=== PATIENT | female | born 2000 | race Caucasian/White ===

== ENCOUNTER 2020-04-22 13:01 | Emergency (ER) | payer BC, SELFPAY ==
[2020-04-22 13:08] VITALS: BP 111/63; PULSE 70; RESP 16; TEMP 37.6; O2SAT 100
--- NOTE | 2020-04-22 13:21 | ED.URI ---
HPI - URI/Sore Throat General Chief Complaint: Upper Respiratory Infection Stated Complaint: sore throat/swollen Time Seen by Provider: 04/22/20 13:21 Source: patient Mode of arrival: ambulatory Limitations: no limitations History of Present Illness HPI Narrative: Kristopher Henson is a 19 yo female with a PMH of depression who [facility] with a sore throat for the last 2 to 3 days. Has a history of having strep throat states is difficult to swallow. Asked that she be given penicillin or other drug because she has used amoxicillin multiple times in the past Related Data Home Medications Medication Instructions Recorded Confirmed sertraline 04/22/20 Allergies Allergy/AdvReac Type Severity Reaction Status Date / Time No Known Allergies Allergy Verified 04/22/20 13:21 Review of Systems Review of Systems: Narrative: CONSTITUTIONAL: Denies fever, chills, sweats. EYES: Denies visual changes, redness, discharge. ENT: Denies rhinorrhea, congestion, has sore throat, no otalgia. CARDIOVASCULAR: Denies chest pain, palpitations, edema. RESPIRATORY: Denies dyspnea, wheezing, cough GASTROINTESTINAL: Denies abdominal pain, nausea, vomiting, diarrhea. GENITOURINARY: Denies dysuria, hematuria, abnormal discharge SKIN: Denies rash or itching. NEUROLOGIC: Denies numbness, or focal weakness. PSYCHIATRIC: Denies anxiety or depression. [facility] Past Medical History Medical History Depression Family History Family History Other Depression Social History Social History (Updated 04/22/20 @ 13:43 by Patsy Redd CNP) Smoking status: Never smoker Alcohol intake: current Comments At time of signature, I agree with nursing past medical, surgical, social and family history. There is no relevant family history pertinent to the presenting complaint. Exam Narrative: Exam Narrative: GENERAL: This is a well-nourished, well-developed patient, in mild distress. HEAD: normocephalic, atraumatic. EYES:Sclera clear/white. Vision is grossly intact. EARS: External ears normal, auditory canals clear and without drainage, TMs normal without perforation. Hearing grossly intact. NOSE: External nose normal without nasal discharge, nares without redness, no rhinorrhea. THROAT: Mucous membranes moist, posterior pharynx erythema with tonsillar swelling NECK: Neck supple, non-tender CARDIOVASCULAR: Regular rate and rhythm without murmurs, gallops, or rubs. RESPIRATORY: Clear to auscultation. Breath sounds equal bilaterally. No wheezes, rales, or rhonchi. GASTROINTESTINAL: Abdomen soft, non-tender, SKIN: warm, intact with no suspicious lesions or rash, good texture and turgor. NEURO: awake, alert, and oriented to person, place and time. There were no obvious focal neurologic abnormalities. Steady gait EXTREMITIES: Normal range of motion. BACK: Nontender without deformity Course Course Emergency Course: Strep test is positive sent for culture Started on penicillin V Infection control discussed Referrals for PCP given Vital Signs Vital signs: Vital Signs Temperature 99.6 F 04/22/20 13:08 Pulse Rate 70 04/22/20 13:08 Respiratory Rate 16 04/22/20 13:08 Blood Pressure 111/63 04/22/20 13:08 Pulse Oximetry 100 04/22/20 13:08 Temperature 99.6 F 04/22/20 13:08 Pulse Rate 70 04/22/20 13:08 Respiratory Rate 16 04/22/20 13:08 Blood Pressure 111/63 04/22/20 13:08 Pulse Oximetry 100 04/22/20 13:08 MDM - URI/Sore Throat Differential Diagnosis Differential diagnosis: Likely upper respiratory infection, otitis media, viral infection, pharyngitis and other Lab Data Labs: Strep Screen Positive Group A Strep *(Reference Range: Negative)* Discharge Plan Discharge Clinical Impression: Pharyngitis Qualifiers: Pharyngitis/tonsillitis etiology: strept
== END 2020-04-22 13:47 | disposition home or self-care (01) ==
PROVIDERS: Emergency Provider Nurse Practitioner
DX: J02.0 Streptococcal pharyngitis (principal); F32.9 Major depressive disorder, single episode, unspecified
CPT/HCPCS: 87880; 99213; G0463

== ENCOUNTER 2021-02-15 17:01 | Emergency (ER) | payer BC, SELFPAY ==
--- NOTE | ~2021-02-15 | XR_ITS ---
EXAMINATION: XR chest 2V EXAM DATE: 02/15/2021 17:43 INDICATION: Crackles. Cough since 02/10/21. TECHNIQUE: Frontal and lateral projections of the chest obtained and reviewed. There is no prior pearl dy for comparison. FINDINGS: The lungs are clear. There are no pleural effusions. The cardiomediastinal silhouette is within normal limits. There is no pneumothorax suspected. The bones and soft tissues are unremarkab le. IMPRESSION: No acute cardiopulmonary findings. Reviewed, dictated and finalized at location A.
--- NOTE | 2021-02-15 17:05 | ED.URI ---
HPI - URI/Sore Throat General Chief Complaint: Upper Respiratory Infection Stated Complaint: Possible Sinus Infection Time Seen by Provider: 02/15/21 17:25 Source: patient and RN notes reviewed Mode of arrival: ambulatory Limitations: no limitations History of Present Illness HPI Narrative: 20-year-old female with history of vaping presents concern for 5 to 6-day history of nasal congestion, sinus pressure, drainage, muffled hearing, cough. Reports intermittent low-grade fever. Reports symptoms started with a sore throat, however the sore throat has resolved. MD elicited complaint: cough and nasal congestion Related Data Allergies Allergy/AdvReac Type Severity Reaction Status Date / Time No Known Allergies Allergy Verified 04/22/20 13:21 Review of Systems Review of Systems: Narrative: CONSTITUTIONAL: Denies malaise, chills, sweats, or fever. EYES: Denies visual changes, redness, or discharge. ENT: Reports rhinorrhea, congestion, sinus pain, otalgia and sore throat. CARDIOVASCULAR: Denies chest pain, palpitations, or edema. RESPIRATORY: Reports cough. Denies dyspnea. GASTROINTESTINAL: Denies abdominal pain, nausea, vomiting, diarrhea SKIN: Denies rash or itching. MUSCULOSKELETAL: Denies myalgia. NEUROLOGIC: Denies headache. All systems reviewed & are unremarkable except as noted in HPI and below PMFSH Past Medical History Medical History (Updated 02/15/21 @ 17:42 by Arlin Escobar NP) Depression Family History Family History Other Depression Social History Social History (Updated 04/22/20 @ 13:43 by Patsy Redd CNP) Smoking status: Never smoker Alcohol intake: current Comments At time of signature, agree with nursing past medical, surgical, social and family history. There is no relevant family history pertinent to the presenting complaint Exam Narrative: Exam Narrative: GENERAL: Well-appearing, well-nourished, and in no acute distress. HEAD: Normocephalic EYES: PERRLA, conjunctivae clear ENT: Nares clear, turbinates edematous and erythematous, clear discharge. Mucous membranes moist. TM pearly pillai with dull light reflex bilaterally; no tragal tenderness. Oropharynx not erythematous without lesions. Tonsils not enlarged and without exudate, no drooling, no hoarseness, no trismus, uvula midline. NECK: Supple. No lymphadenopathy CHEST: Clear to auscultation, breath sounds equal. No wheezing, rhonchi, rales, or stridor. No respiratory distress, speaks in full sentences. HEART: Regular rate and rhythm. No murmur heard. SKIN: Warm, dry, no rash. NEURO: Alert and oriented x3. PSYCH: Normal mood and affect Course Course Emergency Course: Patient is aware of diagnosis, understands and agrees to treatment plan. Anticipatory guidance given. Patient agrees to follow-up as directed and is aware of reasons to seek care at the emergency department. Portions of this record may have been created with voice recognition software Vital Signs Vital signs: Reviewed. MDM - URI/Sore Throat MDM Narrative Medical decision making narrative: Differential diagnosis considered: Staples virus, strep pharyngitis, allergic rhinitis, upper respiratory tract infection, sinusitis, rhinosinusitis, nasopharyngitis. viral pharyngitis, otitis media, otitis externa, pneumonia, bronchitis, viral cough syndrome, viral syndrome, and influenza. Exam findings show no acute concerns or changes; patient is non-toxic appearing and is in no distress. Patient is appropriate for outpatient treatment and follow-up. Imaging Data My impression: Images reviewed, interpreted by radiologist, agree, see report. Radiologist's impression: EXAMINATION: XR chest 2V EXAM DATE: 02/15/2021 17:43 INDICATION: Crackles. Cough since 02/10/21. TECHNIQUE: Frontal and lateral projections of the chest obtained and reviewed. There is no prior study for comparison. FINDINGS: The lungs are clear. There are n
[2021-02-15 17:10] VITALS: BP 114/69; PULSE 66; RESP 16; TEMP 37; O2SAT 100
== END 2021-02-15 18:20 | disposition home or self-care (01) ==
PROVIDERS: Emergency Provider Nurse Practitioner
DX: J06.9 Acute upper respiratory infection, unspecified (principal); R05 Cough; F17.200 Nicotine dependence, unspecified, uncomplicated
CPT/HCPCS: 71046; 99213; G0463

== ENCOUNTER 2021-10-27 16:27 | Emergency (ER) | payer BC, SELFPAY ==
--- NOTE | ~2021-10-27 | XR_ITS ---
EXAMINATION: XR foot RT min 3V EXAM DATE: 10/27/2021 16:47 INDICATION: Dropped A Couch On Rt Foot, Pain To Top Of Rt Foot TECHNIQUE: Right foot dorsoplantar, lateral and oblique projections obtained and reviewed. There is no prior study for comparison. FINDINGS: Right metatarsal bones unremarkable. There are no acute fractures or dislocations identifi ed. There is no subcutaneous gas. The soft tissue is unremarkable. There are no radiopaque foreig n bodies. IMPRESSION: 1. Right foot exam without acute osseous findings. Reviewed, dictated and finalized at location A. ERY ATTENDANT
[2021-10-27 16:34] VITALS: BP 118/80; PULSE 84; RESP 16; TEMP 37.6; O2SAT 100
--- NOTE | 2021-10-27 16:39 | ED.UPPEXIN ---
HPI - Extremity Injury (Upper) General Chief Complaint: Extremity Injury, Lower Stated Complaint: right foot pain Time Seen by Provider: 10/27/21 16:39 Source: patient Mode of arrival: ambulatory Limitations: no limitations History of Present Illness HPI narrative: 21 yo F presents with pain to dorsal aspect R foot. 1 wk ago was moving her couch and dropped couch on it. Reports bruising improved but still having pain. Works at [employer] and walks her entire 8 hr shift. All systems reviewed and negative except as noted above. Related Data Home Medications Medication Instructions Recorded Confirmed glycopyrrolate 10/27/21 sertraline mg 10/27/21 Allergies Allergy/AdvReac Type Severity Reaction Status Date / Time No Known Allergies Allergy Verified 04/22/20 13:21 Review of Systems Review of Systems: CONSTITUTIONAL: Denies fever, chills, or sweats. EYES: Denies visual changes, redness, or discharge. ENT: Denies rhinorrhea, congestion, sore throat, or otalgia. CARDIOVASCULAR: Denies chest pain, palpitations, or edema. RESPIRATORY: Denies cough or dyspnea. GASTROINTESTINAL: Denies abdominal pain, nausea, vomiting, or diarrhea. GENITOURINARY: Denies dysuria or hematuria. SKIN: Denies rash or itching. MUSCULOSKELETAL: Denies back pain, joint pain, or myalgia. Pain to right foot. NEUROLOGIC: Denies headache, numbness, or weakness. PSYCHIATRIC: Denies anxiety or depression. All other systems reviewed are negative, except as documented in HPI. PMFSH Past Medical History Medical History (Updated 10/27/21 @ 16:57 by Sita Calderon NP) Depression Family History Family History Other Depression Social History Social History (Updated 04/22/20 @ 13:43 by Patsy Redd CNP) Smoking status: Never smoker Alcohol intake: current Comments At time of signature, agree with nursing past medical, surgical, social and family history. There is no relevant family history pertinent to the presenting complaint. Exam Narrative: GENERAL: This is a well-nourished, well-developed patient, in no apparent distress. HEAD: normocephalic, atraumatic. EYES: PERRL. Sclera clear/white. Vision is grossly intact. EARS: External ears normal, auditory canals clear and without drainage, TMs normal without perforation. Hearing grossly intact. NOSE: External nose normal with no obvious nasal discharge, nares without redness, no rhinorrhea. THROAT: Mucous membranes moist, posterior pharynx clear. NECK: Neck supple, non-tender without lymphadenopathy, masses or thyromegaly. CARDIOVASCULAR: Regular rate and rhythm without murmurs, gallops, or rubs. RESPIRATORY: Clear to auscultation. Breath sounds equal bilaterally. No wheezes, rales, or rhonchi. GASTROINTESTINAL: Abdomen soft, non-tender, nondistended. Bowel sounds are active. No hepato-splenomegaly, or palpable masses. No guarding. SKIN: warm, Dry, intact with no suspicious lesions or rash, good texture and turgor. NEURO: awake, alert, and oriented to person, place and time. There were no obvious focal neurologic abnormalities. EXTREMITIES: Tenderness to dorsal aspect right foot mid first metatarsal. Mild swelling, no bruising. BACK: Nontender without deformity. No CVA tenderness. Course Course Level of Care: Express Care Visit Vital Signs Vital signs: Vital Signs Temperature 37.6 C 10/27/21 16:34 Pulse Rate 84 10/27/21 16:34 Respiratory Rate 16 10/27/21 16:34 Blood Pressure 118/80 10/27/21 16:34 Pulse Oximetry 100 10/27/21 16:34 Temperature 37.6 C 10/27/21 16:34 Pulse Rate 84 10/27/21 16:34 Respiratory Rate 16 10/27/21 16:34 Blood Pressure 118/80 10/27/21 16:34 Pulse Oximetry 100 10/27/21 16:34 Reviewed MDM - Extremity Injury (Upper) MDM Narrative Medical decision making narrative: Discussed image results with patient. No fracture. Recommend ibuprofen every 6-8 hours with elevat
== END 2021-10-27 17:10 | disposition home or self-care (01) ==
PROVIDERS: Emergency Provider Nurse Practitioner Family
DX: S90.31XA Contusion of right foot, initial encounter (principal); W20.8XXA Other cause of strike by thrown, projected or falling object, initial encounter
CPT/HCPCS: 73630; 99213; G0463

== ENCOUNTER 2022-03-31 16:42 | Emergency (ER) | payer BC, SELFPAY ==
[2022-03-31 16:45] VITALS: BP 122/71; PULSE 75; RESP 20; TEMP 37.1; O2SAT 100
--- NOTE | 2022-03-31 16:51 | ED.SKABFB ---
HPI - Skin/Abscess/Foreign Bdy General Chief complaint: Skin/Abscess/Foreign Body Stated complaint: rash all over Time Seen by Provider: 03/31/22 16:51 Source: patient, RN notes reviewed and old records reviewed Mode of arrival: ambulatory Limitations: no limitations History of Present Illness HPI narrative: 21 year old female presents to [facility] care with complaints of having 102F temperature on Sunday then the next day she had some vomiting and also some lightheadedness and has developed fine prickly rash on chest, arms,wrists which is minimally itching. Patient reports that she has sensitive skin issues and has been applying cortisone ointment to rash. Patient reports that she had COVID about 1 month ago. Patient reports that she had sore throat for past few days but denies any sore throat today,denies any fevers for past 2 days. Patient states no new medications, food, soaps, lotions, or any new laundry products. MD complaint: rash Onset (ago): day(s) (2) Treatments prior to arrival: OTC topical medication Related Data Home Medications Medication Instructions Recorded Confirmed glycopyrrolate 2 mg tablet 3 mg PO DAILY 10/27/21 03/31/22 sertraline 50 mg tablet 50 mg PO DAILY 10/27/21 03/31/22 amitriptyline 10 mg tablet 10 mg PO DAILY 03/31/22 03/31/22 Allergies Allergy/AdvReac Type Severity Reaction Status Date / Time No Known Allergies Allergy Verified 03/31/22 17:02 Review of Systems Review of Systems: CONSTITUTIONAL: Denies fever for past 2 days, no chills, or sweats. EYES: Denies visual changes, redness, or discharge. ENT: Denies rhinorrhea, congestion, sore throat, or otalgia. CARDIOVASCULAR: Denies chest pain, palpitations, or edema. RESPIRATORY: Denies cough or dyspnea. GASTROINTESTINAL: Denies abdominal pain, nausea, vomiting, or diarrhea. GENITOURINARY: Denies dysuria or hematuria. SKIN: fine prickly rash to chest lower arms and wrist with itching. MUSCULOSKELETAL: Denies back pain, joint pain, or myalgia. NEUROLOGIC: Denies headache, numbness, or weakness. PSYCHIATRIC: Positive for history of anxiety or depression. All systems reviewed & are unremarkable except as noted in HPI and below [facility] Past Medical History Medical History (Updated 04/02/22 @ 11:18 by Anila Bee NP) Anxiety and depression COVID-07 march 2022 Family History Family History Other Depression Social History Social History (Updated 04/02/22 @ 11:15 by Anila Bee NP) Smoking status: Current every day smoker Tobacco type: e-cigarettes/vaping Alcohol intake: current Substance use type: does not use Gender identity (if verbalized by the patient): Female Comments At time of signature, agree with nursing past medical, surgical, social and family history. There is no relevant family history pertinent to the presenting complaint Exam Narrative: GENERAL: Well-appearing, well-nourished, and in no acute distress, anxious HEAD: Normocephalic, atraumatic. EYES: PERRLA and EOMI. ENT: Nares clear, no rhinorrhea or epistaxis. Mucous membranes moist.TM's normal with good light reflex, throat with mild redness no lesions or exudates, tonsil with mild swelling NECK: Supple.no lymphadenopathy CHEST: Clear to auscultation. No respiratory distress.SAO2 100% on room air HEART: Regular rate and rhythm. No murmur heard. Normal peripheral pulses. ABDOMEN: Soft, nontender, nondistended, normal active bowel sounds. EXTREMITIES: Normal range of motion. No edema. SKIN: Warm, dry, fine prickly rash to chest, forearms, and wrists with minimal itching, no vesicle formation or drainage, NEURO: No focal deficits. Alert and oriented x3. Course Course Level of Care: Express Care Visit Vital Signs Vital signs: Vital Signs Temperature 37.1 C 03/31/22 16:45 Pulse Rate 75 03/31/22 16:45 Respiratory Rate 20 03/31/22 16:45 Blood Pressure 122/71 03/31/22 16:45 P
== END 2022-03-31 17:25 | disposition home or self-care (01) ==
PROVIDERS: Emergency Provider Registered Nurse
DX: B09 Unspecified viral infection characterized by skin and mucous membrane lesions (principal); F17.290 Nicotine dependence, other tobacco product, uncomplicated; F41.9 Anxiety disorder, unspecified; F32.A Depression, unspecified; Z86.16 Personal history of COVID-19
CPT/HCPCS: 87081; 99213; G0463